=== PATIENT | female | born 1975 | race Caucasian/White ===

== ENCOUNTER 2022-10-19 12:31 | Emergency (ER) | payer OTHER, SELFPAY ==
--- NOTE | ~2022-10-19 | XR_ITS ---
XR forearm RT 2V DATE: 10/19/2022 13:13 INDICATION: Fall. Right forearm, hand and left knee pain TECHNIQUE: AP and lateral views COMPARISON: None FINDINGS: Normal alignment at the elbow and wrist joints. No fracture or dislocation of the radius or ulna. IMPRESSION: Negative Reviewed, dictated and finalized at location A. IMPRESSION: Negative
--- NOTE | ~2022-10-19 | XR_ITS ---
XR hand RT min 3V DATE: 10/19/2022 13:13 INDICATION: Fall. Right forearm and hand pain, left knee pain TECHNIQUE: 3 views COMPARISON: None FINDINGS: No fracture, dislocation, periosteal reaction or bone destruction. Joint spaces are relativ eulalia preserved. No erosive change or chondrocalcinosis. IMPRESSION: Negative Reviewed, dictated and finalized at location A. IMPRESSION: Negative
--- NOTE | ~2022-10-19 | XR_ITS ---
XR knee LT min 4V DATE: 10/19/2022 13:13 INDICATION: Fall. Left knee injury, pain TECHNIQUE: 4 views including crosstable lateral COMPARISON: None FINDINGS: Patellar enthesopathy at quadriceps and patellar tendon insertion sites. No fracture or dislocation or joint effusion. Joint spaces are relatively preserved. No periosteal re action or bone destruction. No radiopaque intra-articular loose body or chondrocalcinosis. IMPRESSION: No fracture or dislocation or joint effusion Reviewed, dictated and finalized at location A.
[2022-10-19 12:44] VITALS: BP 125/76; PULSE 89; RESP 16; TEMP 36.9; O2SAT 93
--- NOTE | 2022-10-19 13:04 | ED.GENADULT ---
HPI - General Adult General Chief complaint: Extremity Injury, Upper Stated complaint: Fall Injury/Right Arm Injury/Left Knee Source: patient Mode of arrival: ambulatory Limitations: no limitations History of Present Illness HPI narrative: Patient presents for evaluation of pain in the right hand, right forearm and left knee. She was walking down steps last night outdoors when she missed a step and fell. Her hand got caught in a folding chair and her left knee hit the ground. She did not hit her head. No LOC. she rates her pain in the left knee is 4/10 severity, right hand and forearm as 6/10 severity. No paresthesias. No loss of range of motion. Movement makes her pain worse. She is right-hand dominant. Related Data Home Medications Medication Instructions Recorded Confirmed atorvastatin 10 mg tablet 10 mg PO DAILY 03/07/21 10/19/22 biotin 1 mg capsule 1 mg PO DAILY 03/07/21 10/19/22 buspirone 7.5 mg tablet 7.5 mg PO DAILY 03/07/21 10/19/22 citalopram 40 mg tablet 40 mg PO DAILY 03/07/21 10/19/22 lisinopril 20 1 tablet PO DAILY 03/07/21 10/19/22 mg-hydrochlorothiazide 25 mg tablet modafinil 200 mg tablet 200 mg PO QAM 03/07/21 10/19/22 amlodipine 10 mg tablet 10 mg PO DAILY 10/19/22 10/19/22 atenolol 25 mg tablet 25 mg PO DAILY 10/19/22 10/19/22 dapagliflozin propanediol 5 mg 5 mg PO DAILY 10/19/22 10/19/22 tablet (Farxiga) omeprazole 40 mg capsule,delayed mg 10/19/22 release semaglutide 1 mg/dose (4 mg/3 mL) mg subcut 10/19/22 10/19/22 subcutaneous pen injector (Ozempic) Allergies Allergy/AdvReac Type Severity Reaction Status Date / Time No Known Allergies Allergy Unverified 10/19/22 12:53 Review of Systems Review of Systems: CONSTITUTIONAL: Denies fever, chills, or sweats. EYES: Denies visual changes, redness, or discharge. ENT: Denies rhinorrhea, congestion, sore throat, or otalgia. CARDIOVASCULAR: Denies chest pain, palpitations, or edema. RESPIRATORY: Denies cough or dyspnea. GASTROINTESTINAL: Denies abdominal pain, nausea, vomiting, or diarrhea. GENITOURINARY: Denies dysuria or hematuria. SKIN: Denies rash or itching. MUSCULOSKELETAL: Reports pain in the right hand, right forearm and left knee NEUROLOGIC: Denies headache, numbness, dizziness, or weakness. PSYCHIATRIC: Denies anxiety or depression. PMFSH Past Medical History Medical History (Updated 10/19/22 @ 13:44 by JESSIE Sosa, ) Anxiety Diabetes GERD (gastroesophageal reflux disease) Hypertension Surgical History Surgical History No pertinent past surgical history Family History Family History Father Diabetes mellitus Hypertension Mother Hypertension Diabetes mellitus Breast cancer Daughter Hypertension Depression Social History Social History (Updated 10/19/22 @ 13:07 by JESSIE Sosa, ) Smoking status: Never smoker Alcohol intake: never Substance use: never Gender identity (if verbalized by the patient): Female Sexual Orientation (if Verbalized by the Patient): Straight or Heterosexual Spiritual care concerns: No Exam Narrative: GENERAL: Well-appearing, well-nourished, and in no acute distress. HEAD: Normocephalic, atraumatic. EYES: PERRLA and EOMI. ENT: Nares clear, no rhinorrhea or epistaxis. Mucous membranes moist. Oropharynx without tonsillar hypertrophy exudate or other lesions. Bilateral TMs pearly lazcano nonbulging NECK: Supple. No adenopathy or masses. No carotid bruits or JVD CHEST: Clear to auscultation. No respiratory distress. No wheezes rales or rhonchi HEART: Regular rate and rhythm. No murmur heard. Normal peripheral pulses. ABDOMEN: Soft, nontender, nondistended, normal active bowel sounds. EXTREMITIES: Trace nonpitting edema to right hand. Tenderness in the 3rd and 4th metacarpals of the right hand. 4/5 hand drapery maker strength
== END 2022-10-19 13:45 | disposition home or self-care (01) ==
PROVIDERS: Emergency Provider Nurse Practitioner; PCP Family Medicine
DX: S63.501A Unspecified sprain of right wrist, initial encounter (principal); W10.9XXA Fall (on) (from) unspecified stairs and steps, initial encounter; S60.221A Contusion of right hand, initial encounter; S80.02XA Contusion of left knee, initial encounter; E11.9 Type 2 diabetes mellitus without complications; K21.9 Gastro-esophageal reflux disease without esophagitis; I10 Essential (primary) hypertension; F41.9 Anxiety disorder, unspecified
CPT/HCPCS: 73090; 73130; 73564; 99214; G0463

== ENCOUNTER 2023-09-17 22:22 | Inpatient (IN) | payer OTHER, SELFPAY ==
[2023-09-17 22:26] VITALS: BP 139/80; PULSE 108; RESP 15; TEMP 38.6; O2SAT 97
--- NOTE | 2023-09-17 22:32 | ECG_ITS ---
SEE SCANNED COPY FOR CONFIRMED REPORT MTDD
--- NOTE | 2023-09-17 22:44 | ED.GENADULT ---
HPI - General Adult General Chief complaint: Skin/Abscess/Foreign Body <Pedrito Murphy PA-C - Last Filed: 09/18/23 01:38> Stated complaint: Cellulitis <LAMONT Schwartz Last Filed: 09/18/23 01:38> Time Seen by Provider: 09/17/23 22:30 <LAMONT Schwartz Last Filed: 09/18/23 01:38> Source: patient <LAMONT Schwartz Last Filed: 09/18/23 01:38> Mode of arrival: ambulatory <LAMONT Schwartz Last Filed: 09/18/23 01:38> Limitations: no limitations <LAMONT Schwartz Last Filed: 09/18/23 01:38> History of Present Illness HPI narrative: This is a 48-year-old female who presents to the ED with chief complaint of left lower abdominal rash, pain and tenderness for the past couple of weeks. Reports this started as a small boil and extended into induration and redness around the abdomen. She reports that she has been on Bactrim and Augmentin through PCP with no relief. States the redness continues to spread and she continues to have pain. Reports that she started becoming febrile with temperature in the 101? F range. Denies nausea, vomiting, chest pain, shortness of breath, cough, urinary symptoms or back pain <LAMONT Schwartz Last Filed: 09/18/23 01:38> Related Data Home medications: Home Medications Medication Instructions Recorded Confirmed atorvastatin 10 mg tablet 10 mg PO DAILY 03/07/21 09/18/23 citalopram 40 mg tablet 40 mg PO DAILY 03/07/21 09/18/23 lisinopril 20 1 tablet PO DAILY 03/07/21 09/18/23 mg-hydrochlorothiazide 25 mg tablet modafinil 200 mg tablet 200 mg PO QAM 03/07/21 09/18/23 amlodipine 10 mg tablet 10 mg PO DAILY 10/19/22 09/18/23 atenolol 25 mg tablet 25 mg PO DAILY 10/19/22 09/18/23 dapagliflozin propanediol 5 mg 5 mg PO DAILY 10/19/22 09/18/23 tablet (Farxiga) omeprazole 40 mg capsule,delayed 40 mg PO DAILY 10/19/22 09/18/23 release semaglutide 1 mg/dose (4 mg/3 mL) See Rx Instructions .Route .COMPLEX 10/19/22 09/18/23 subcutaneous pen injector (Ozempic) colestipol 1 gram tablet 1 g PO HS 09/18/23 09/18/23 diphenoxylate-atropine 2.5 1 tablet PO QID PRN Diarrhea 09/18/23 09/18/23 mg-0.025 mg tablet silver sulfadiazine 1 % topical 1 applic topical DAILY 09/18/23 09/18/23 cream (SSD) <Pedrito Murphy PA-C - Last Filed: 09/18/23 01:38> Allergies/adverse reactions: Allergies Allergy/AdvReac Type Severity Reaction Status Date / Time No Known Allergies Allergy Verified 09/17/23 22:52 <Pedrito Murphy PA-C - Last Filed: 09/18/23 01:38> Review of Systems Review of Systems: All systems as dictated in HPI <Pedrito Murphy PA-C - Last Filed: 09/18/23 01:38> [facility] Past Medical History Medical History: Medical History (Updated 09/18/23 @ 00:41 by Pedrito Murphy PA-C) Anxiety Diabetes GERD (gastroesophageal reflux disease) Hypertension <Pedrito Murphy PA-C - Last Filed: 09/18/23 01:38> Surgical History Surgical History: Surgical History No pertinent past surgical history <Pedrito Murphy PA-C - Last Filed: 09/18/23 01:38> Family History Family History: Family History Father Diabetes mellitus Hypertension Mother Hypertension Diabetes mellitus Breast cancer Daughter Hypertension Depression <Pedrito Murphy PA-C - Last Filed: 09/18/23 01:38> Social History Social History: Social History (Updated 10/19/22 @ 13:07 by JESSIE Sosa, BC) Smoking status: Never smoker Alcohol intake: never Substance use: never Substance use type: does not use Do You Feel Safe in your Home?: Yes Lack of Transportation: No Lack of Food: Never True Current Housing: I Have Housing Concerned About Future Housing: No Difficulty Paying Gas/Electric Bills: No Difficulty Paying for Meds: No Currently Unemployed: No Education: High School
[2023-09-17 22:47] VITALS: BP 126/63; PULSE 112; RESP 30; O2SAT 93
[2023-09-17 22:48] VITALS: BP 126/63; PULSE 108; RESP 24; O2SAT 94
[2023-09-17] MEDS: SODIUM CHLORIDE 0.9% IV 1,000 ML 999 ML IV CONT ×2 (22:48)
[2023-09-17 22:57] LABS: Basophils Absolute Auto 0.1 K/mm3 (0.0-0.1); Basophils Percent Auto 0.3 % (0.2-1.2); Eosinophils Absolute Auto 0.1 K/mm3 (0-0.3); Eosinophils Percent Auto 0.6 % (0-4.4); Hemoglobin 13.1 g/dL (12.0-15.0); Immature Granulocyte Absolute 0.11 K/mm3 (0.00-0.031); Immature Granulocyte Percent A 0.6 % (0-0.5); Lymphocytes Absolute Auto 2.83 K/mm3 (0.9-3.2); Lymphocytes Percent Auto 14.8 % (18.3-44.2); Mean Corpuscular Hemoglobin 28.2 pg (26-34); Mean Corpuscular Volume 88.4 fl (80-100); Mean Platelet Volume 8.9 fl (7.4-10.4); Monocytes Absolute Auto 1.6 K/mm3 (0.1-0.6); Monocytes Percent Auto 8.6 % (2.6-8.5); Neutrophils Absolute Auto 14.4 K/mm3 (1.3-6.7); Neutrophils Percent Auto 75.1 % (45.5-73.1); Platelet Count Result 335 k/mm3 (150-375); Red Blood Count 4.64 M/mm3 (4.2-5.4); Red Cell Distribution Width 14.9 % (11.5-14.5); White Blood Count 19.1 K/mm3 (4.5-10.0)
[2023-09-17 23:01] VITALS: BP 127/69; PULSE 106; RESP 24; O2SAT 93
[2023-09-17 23:09] LABS: Lactic Acid Reflex 1.7 mmol/L (0.7-2.0)
[2023-09-17 23:11] LABS: INR 1.1; Prothrombin Time 14.3 Seconds (11.1-14.7)
[2023-09-17 23:12] LABS: Partial Thromboplastin Time 27.1 Seconds (22.3-36.8)
[2023-09-17] MEDS: LORazepam INJ (*CRX) 2 MG/ML VIAL 0.5 MG IM (23:12)
[2023-09-17 23:13] LABS: Alanine Aminotransferase 32 U/L (6-35); Albumin Level 4.2 g/dL (3.5-5.1); Alkaline Phosphatase 101 U/L (38-126); Anion Gap 6 mmol/L (4-12); Aspartate Amino Transferase 29 U/L (14-36); Bilirubin,Total 1.3 mg/dL (0.2-1.3); Blood Urea Nitrogen 9 mg/dL (7-17); Carbon Dioxide 31 mmol/L (22-30); Chloride 99 mmol/L (98-107); Estimated CRCL calculation 103 ml/min; Estimated Glomerular Filt Rate > 60; Glucose 188 mg/dL (65-110); Lipase 36 U/L (23-300); Potassium 3.7 mmol/L (3.4-5.0); Sodium 136 mmol/L (137-145)
[2023-09-17] MEDS: KETOROLAC 15 MG/ML VIAL (*BKC) IV PUSH (23:13)
[2023-09-17] MEDS: CEFEPIME 2 GM/NS 50 ML 2 GM/50 ML BAG IVPB (23:13)
[2023-09-17 23:14] LABS: Appearance Urine Clear (Clear); Bacteria Urine None Seen /hpf; Bilirubin Urine Negative (Negative); Blood Urine Negative (Negative); Color Urine Yellow (Yellow); Glucose Urine UA 2+ mg/dL (Negative); Ketones Urine Trace mg/dL (Negative); Leukocyte Esterase Ur Negative LEU/UL (Negative); Nitrate Urine Negative (Negative); Non Pathogenic Casts 0-2; Protein Urine Trace mg/dL (Negative); RBC Urine 0-2 /hpf (0-2); Specific Grav Ur 1.023 (1.001-1.035); Squamous Epithelial Cell Urine Occasional /hpf (Few); WBC Urine 0-5 /hpf (0-3)
[2023-09-17 23:16] VITALS: BP 137/71; PULSE 108; RESP 31; O2SAT 93
[2023-09-17 23:28] LABS: Add Urine Microscopic? YES
[2023-09-17 23:31] VITALS: BP 145/67; PULSE 107; RESP 28; O2SAT 90
[2023-09-17 23:40] LABS: CRP 25.9 mg/dL (<1.0)
[2023-09-17] MEDS: VANCOMYCIN 1,250 MG/NS 250 ML 1,250 MG/250 ML BAG 166.67 MG IVPB (23:40)
[2023-09-18] VITALS (25 sets, daily range): BP systolic 131–148; BP diastolic 63–78; PULSE 79–108; RESP 16–31; TEMP 36.7–38.3; O2SAT 92–98
[2023-09-18] MEDS: SODIUM CHLORIDE 0.9% IV 1,000 ML 125 ML IV CONT ×3 (01:03→23:22)
[2023-09-18] MEDS: MORPHINE SULFATE (*CRX) 2 MG/ML INJ IV PUSH (01:03)
[2023-09-18] MEDS: VANCOMYCIN 1,250 MG/NS 250 ML 1,250 MG/250 ML BAG 166.67 MG IVPB (01:17)
--- NOTE | 2023-09-18 01:29 | ADMGEN ---
This patient, Tory Lopez, was admitted to 2 Medical Room 259-. Patient/family oriented to hospital policies and general routines including ID bracelet, bed and alarms, visiting hours, pain management, procedures, bathroom and other care routines, personal items, smoking policy, room service/diet, and visiting hours. Information on how to activate the Rapid Response Team has been discussed. Patient/Family are encouraged to report perceived risks to care and to ask questions if they do not understand what they are told or what they should do.
--- NOTE | 2023-09-18 04:45 | PM.IMHP ---
H&P: HPI History of Present Illness Date/Time: 09/18/23 04:45 Chief Complaint: fever Narrative: patient is a 48-year-old female with history of hypertension, sleep apnea, obesity, diabetes, hypertension came to the hospital complaining of left lower abdomen redness and tenderness getting worse in the last few days. Patient was seen by the PCP as an outpatient started on Augmentin and Bactrim with no relief. Patient continued to notice that the rash is getting larger and more tender and more swollen at that site. Patient had a temp of 101? max no nausea no vomiting no abdominal pain and no local injuries patient states her blood sugars have been well controlled Review of Systems Review of Systems: No double vision no blurry vision. No difficulty hearing or sinus complaints. No chest pain shortness of breath fever palpitation dizziness ankle swelling. No coughing wheezing chills. No nausea constipation diarrhea abdominal pain reflux. No urgency frequency of urination. No hematuria. has skin rash eczema. No anxiety depression difficulty sleeping. No bleeding gums enlarged glands. No muscle ache back pain joint stiffness. No loss of strength numbness headache tremor or loss of memory. All systems reviewed & are unremarkable except as noted in HPI and below PMFSH Past Medical History Medical History (Updated 09/18/23 @ 00:41 by Pedrito Murphy PA-C) Anxiety Diabetes GERD (gastroesophageal reflux disease) Hypertension Surgical History Surgical History No pertinent past surgical history Family History Family History Father Diabetes mellitus Hypertension Mother Hypertension Diabetes mellitus Breast cancer Daughter Hypertension Depression Social History Social History (Updated 10/19/22 @ 13:07 by JESSIE Sosa, ) Smoking status: Never smoker Alcohol intake: never Substance use: never Substance use type: does not use Do You Feel Safe in your Home?: Yes Lack of Transportation: No Lack of Food: Never True Current Housing: I Have Housing Concerned About Future Housing: No Difficulty Paying Gas/Electric Bills: No Difficulty Paying for Meds: No Currently Unemployed: No Education: High School Diploma/GED Difficulty w/ Childcare or Family Care: No Gender identity (if verbalized by the patient): Female Sexual Orientation (if Verbalized by the Patient): Straight or Heterosexual Spiritual care concerns: No Meds Home Medications and Allergies Home Medications Medication Instructions Recorded Confirmed Type atorvastatin 10 mg tablet 10 mg PO DAILY 03/07/21 09/18/23 History calcium polycarbophil 625 mg 1,250 mg PO BID #120 tabs 03/07/21 09/18/23 Rx tablet (FiberCon) citalopram 40 mg tablet 40 mg PO DAILY 03/07/21 09/18/23 History lisinopril 20 1 tablet PO DAILY 03/07/21 09/18/23 History mg-hydrochlorothiazide 25 mg tablet modafinil 200 mg tablet 200 mg PO QAM 03/07/21 09/18/23 History amlodipine 10 mg tablet 10 mg PO DAILY 10/19/22 09/18/23 History atenolol 25 mg tablet 25 mg PO DAILY 10/19/22 09/18/23 History dapagliflozin propanediol 5 mg 5 mg PO DAILY 10/19/22 09/18/23 History tablet (Farxiga) omeprazole 40 mg capsule,delayed 40 mg PO DAILY 10/19/22 09/18/23 History release semaglutide 1 mg/dose (4 mg/3 mL) See Rx Instructions .Route .COMPLEX 10/19/22 09/18/23 History subcutaneous pen injector (Ozempic) colestipol 1 gram tablet 1 g PO HS 09/18/23 09/18/23 History diphenoxylate-atropine 2.5 1 tablet PO QID PRN Diarrhea 09/18/23 09/18/23 History mg-0.025 mg tablet silver sulfadiazine 1 % topical 1 applic topical DAILY 09/18/23 09/18/23 History cream (SSD) Allergies Allergy/AdvReac Type Severity Reaction Status Date / Time No Known Allergies Allergy Verified 09/17/23 22:52 Vital
[2023-09-18 05:40] LABS: Estimated CRCL calculation 118 ml/min; Estimated Glomerular Filt Rate > 60
[2023-09-18] MEDS: ACETAMINOPHEN 325 MG TABLET 650 MG PO (06:22)
[2023-09-18 06:31] LABS: Hemoglobin 11.5 g/dL (12.0-15.0); Mean Corpuscular HGB Conc 31.1 g/dl (32-36); Mean Corpuscular Hemoglobin 28.3 pg (26-34); Mean Corpuscular Volume 90.9 fl (80-100); Mean Platelet Volume 9.4 fl (7.4-10.4); Platelet Count Result 315 k/mm3 (150-375); Red Blood Count 4.07 M/mm3 (4.2-5.4); Red Cell Distribution Width 15.2 % (11.5-14.5)
[2023-09-18 06:43] LABS: Alanine Aminotransferase 26 U/L (6-35); Albumin Level 3.4 g/dL (3.5-5.1); Alkaline Phosphatase 114 U/L (38-126); Anion Gap 8 mmol/L (4-12); Aspartate Amino Transferase 27 U/L (14-36); Bilirubin,Total 1.1 mg/dL (0.2-1.3); Blood Urea Nitrogen 9 mg/dL (7-17); Carbon Dioxide 25 mmol/L (22-30); Chloride 105 mmol/L (98-107); Estimated CRCL calculation 118 ml/min; Estimated Glomerular Filt Rate > 60; Glucose 157 mg/dL (65-110); Potassium 3.6 mmol/L (3.4-5.0); Sodium 138 mmol/L (137-145)
[2023-09-18 07:30] LABS: Hemoglobin A1C 6.7 % (<5.7)
--- NOTE | 2023-09-18 07:53 | PM.IMPN ---
Progress Note: A&P Assessment and Plan (1) Cellulitis: Code(s): L03.90 - Cellulitis, unspecified Status: Acute (2) Sepsis: Code(s): A41.9 - Sepsis, unspecified organism Status: Acute (3) GERD (gastroesophageal reflux disease): Code(s): K21.9 - Gastro-esophageal reflux disease without esophagitis Status: Acute (4) Diabetes: Code(s): E11.9 - Type 2 diabetes mellitus without complications Status: Acute Plan Sepsis/abdominal wall cellulitis IV fluid resuscitation Monitor lactic acid levels Repeat CBC CMP Two sets of Blood cultures urine cultures- pending C-reactive protein, 25.9 WBCs 19.1-18 today PTT and PT INR normal Monitor albumin' Monitoring of mental status. Steroids suggested if septic shock not improved with fluid resuscitation and vasopressors. IV antibiotics vancomycin and cefepime DM HBA1c ( goal <7.0%) , Renal functions, Liver panel every 3 months Monitor vitamin B12 levels Optimize MARILOU-inhibitor and statin and semaglutide patient currently on Farxiga Routine glucose monitoring. Watch for Hypoglycemia. BMI goal < 25 Exercise, Diet ( low salt- low carb) Weight loss adding sliding scale insulin for strict blood sugar control OBESITY Monitor physical inactivity. Stress monitoring and eating disorder. Referral to weight loss clinic. Weight bias and stigma screening. Diet and exercise counseling done History of hypertension continue lisinopril hydrochlorothiazide. and amlodipine History of hyperlipidemia continue atorvastatin history of anxiety continue citalopram (obesogenic) Time Spent With Patient Time with patient: 15 - 25 minutes Subjective Date/time seen: 09/18/23 07:53 Interval history: 48-year-old female PMH hypertension, sleep apnea, obesity, diabetes, hypertension came to the hospital complaining of left lower abdomen redness and tenderness getting worse in the last few days.? Patient was seen by the PCP as an outpatient started on Augmentin and Bactrim with no relief.? Patient continued to notice that the rash is getting larger and more tender and more swollen at that site.? Patient had a temp of 101? max no nausea no vomiting no abdominal pain and no local injuries patient states her blood sugars have been well controlled. 09/17- seen and examined at the bedside. Erythema marked on abd- improving. Pt is comfortable, repors no complains. Denies abd pain, no n/v/d Review of Systems Review of Systems: No double vision no blurry vision. No difficulty hearing or sinus complaints. No chest pain shortness of breath fever palpitation dizziness ankle swelling. No coughing wheezing chills. No nausea constipation diarrhea abdominal pain reflux. No urgency frequency of urination. No hematuria. has skin rash eczema. No anxiety depression difficulty sleeping. No bleeding gums enlarged glands. No muscle ache back pain joint stiffness. No loss of strength numbness headache tremor or loss of memory. All systems reviewed & are unremarkable except as noted in HPI and below Exam Narrative: GENERAL: Well appearing, no acute distress. HEAD: Normocephalic, atraumatic. NECK: Supple. No adenopathy, no masses. RESPIRATORY: respirations nonlabored. , no rales, wheezing. CARDIOVASCULAR: Regular rate and rhythm without murmurs, . Peripheral pulses 2+ and equal bilaterally. ABDOMINAL: Soft, nontender, nondistended, no hepatosplenomegaly. Normoactive BS. erythema and abscess left lower quadrant abdominal wall MUSCULOSKELETAL: no Epigastric and no hypochondrial tenderness SKIN: Warm, dry, erythema is improving to abd (abd is marked) NEURO: A&O X3. Moves all extremities Const: General: comfortable Objective Data Vital Signs Vital Signs: Vital Signs - 24 hr 09/17/23 22:26 09/17/23 22:48 09/17/23 22:47 Temperature 101.4 F H Pulse Rate 108 H 108 H 112 H Respiratory Rate 15 24 H 30 H Blood Pressure 139/80 126/6
[2023-09-18] MEDS: CITALOPRAM HYDROBROMIDE 20 MG TABLET 40 MG PO (08:57)
[2023-09-18] MEDS: hydroCHLOROthiazide 25 MG TABLET PO (08:57)
[2023-09-18] MEDS: PANTOPRAZOLE 40 MG TABLET PO ×2 (08:57→16:10)
[2023-09-18] MEDS: modafiniL (*CRX) 200 MG TABLET PO (08:57)
[2023-09-18] MEDS: lisinopriL 20 MG TABLET PO (08:57)
[2023-09-18] MEDS: atenoloL 25 MG TABLET PO (08:57)
[2023-09-18] MEDS: amLODIPine BESYLATE 5 MG TABLET 10 MG PO (08:58)
[2023-09-18] MEDS: ATORVASTATIN 10 MG TABLET PO (08:58)
[2023-09-18] MEDS: EMPAGLIFLOZIN 10 MG TABLET PO (08:58)
[2023-09-18] MEDS: ENOXAPARIN 40 MG/0.4 ML SYRINGE SUB-Q (08:58)
[2023-09-18] MEDS: HYDROcodone/acetaminophen (*CRX) 5-325 MG TABLET 1 TAB PO ×2 (09:13→16:10)
[2023-09-18 09:28] LABS: Glucose Point of Care 146 mg/dl (65-105)
[2023-09-18] MEDS: CEFEPIME 2 GM/NS 50 ML 2 GM/50 ML BAG IVPB ×2 (11:34→23:22)
[2023-09-18 11:50] LABS: Glucose Point of Care 131 mg/dl (65-105)
[2023-09-18] MEDS: VANCOMYCIN 1,500 MG/NS 500 ML 1,500 MG/500 ML BAG 250 MG IVPB ×2 (12:37→23:22)
[2023-09-18] MEDS: ONDANSETRON INJ 4 MG/2 ML VIAL IV PUSH (13:42)
[2023-09-18 16:52] LABS: Glucose Point of Care 134 mg/dl (65-105)
[2023-09-18 20:11] LABS: Glucose Point of Care 161 mg/dl (65-105)
[2023-09-18] MEDS: COLESTIPOL HCL 1 GM TABLET PO (20:14)
[2023-09-19] VITALS (10 sets, daily range): BP systolic 102–124; BP diastolic 51–60; PULSE 76–99; RESP 16–20; TEMP 36.2–36.9; O2SAT 91–92
[2023-09-19] MEDS: HYDROcodone/acetaminophen (*CRX) 5-325 MG TABLET 1 TAB PO (01:46)
[2023-09-19 01:56] LABS: Glucose Point of Care 146 mg/dl (65-105)
[2023-09-19 04:59] LABS: Hematocrit 35.5 % (37.0-47.0); Hemoglobin 11.1 g/dL (12.0-15.0); Mean Corpuscular HGB Conc 31.3 g/dl (32-36); Mean Corpuscular Hemoglobin 28.2 pg (26-34); Mean Corpuscular Volume 90.1 fl (80-100); Mean Platelet Volume 9.1 fl (7.4-10.4); Platelet Count Result 310 k/mm3 (150-375); Red Blood Count 3.94 M/mm3 (4.2-5.4); Red Cell Distribution Width 15.1 % (11.5-14.5); White Blood Count 16.7 K/mm3 (4.5-10.0)
[2023-09-19 05:09] LABS: Alanine Aminotransferase 33 U/L (6-35); Albumin Level 3.5 g/dL (3.5-5.1); Alkaline Phosphatase 113 U/L (38-126); Anion Gap 7 mmol/L (4-12); Aspartate Amino Transferase 26 U/L (14-36); Bilirubin,Total 1.2 mg/dL (0.2-1.3); Blood Urea Nitrogen 8 mg/dL (7-17); Calcium 8.6 mg/dL (8.4-10.2); Carbon Dioxide 26 mmol/L (22-30); Chloride 105 mmol/L (98-107); Estimated CRCL calculation 118 ml/min; Estimated Glomerular Filt Rate > 60; Glucose 114 mg/dL (65-110); Potassium 3.5 mmol/L (3.4-5.0); Sodium 138 mmol/L (137-145)
[2023-09-19 05:11] LABS: Lactic Acid Reflex 0.9 mmol/L (0.7-2.0)
[2023-09-19 06:40] LABS: Glucose Point of Care 130 mg/dl (65-105)
--- NOTE | 2023-09-19 08:04 | PM.IMPN ---
Progress Note: A&P Assessment and Plan (1) Cellulitis: Code(s): L03.90 - Cellulitis, unspecified Status: Acute (2) Sepsis: Code(s): A41.9 - Sepsis, unspecified organism Status: Acute (3) GERD (gastroesophageal reflux disease): Code(s): K21.9 - Gastro-esophageal reflux disease without esophagitis Status: Acute (4) Diabetes: Code(s): E11.9 - Type 2 diabetes mellitus without complications Status: Acute Plan Sepsis/abdominal wall cellulitis IV fluid resuscitation Monitor lactic acid levels Repeat CBC CMP Two sets of Blood cultures urine cultures- pending C-reactive protein, 25.9 WBCs 19.1-18 today PTT and PT INR normal Monitor albumin' Monitoring of mental status. Steroids suggested if septic shock not improved with fluid resuscitation and vasopressors. IV antibiotics vancomycin and cefepime will switch to oral Levaquin and doxy tomorrow with 10 days duration and anticipate discharge home. 09/18 WBC 16.7 today DM HBA1c ( goal <7.0%) , Renal functions, Liver panel every 3 months Monitor vitamin B12 levels Optimize MARILOU-inhibitor and statin and semaglutide patient currently on [facility] Routine glucose monitoring. Watch for Hypoglycemia. BMI goal < 25 Exercise, Diet ( low salt- low carb) Weight loss adding sliding scale insulin for strict blood sugar control OBESITY Monitor physical inactivity. Stress monitoring and eating disorder. Referral to weight loss clinic. Weight bias and stigma screening. Diet and exercise counseling done History of hypertension continue lisinopril hydrochlorothiazide. and amlodipine History of hyperlipidemia continue atorvastatin history of anxiety continue citalopram (obesogenic) Time Spent With Patient Time with patient: less than 15 minutes Subjective Date/time seen: 09/19/23 08:04 Interval history: 48-year-old female [facility] hypertension, sleep apnea, obesity, diabetes, hypertension came to the hospital complaining of left lower abdomen redness and tenderness getting worse in the last few days.? Patient was seen by the PCP as an outpatient started on Augmentin and Bactrim with no relief.? Patient continued to notice that the rash is getting larger and more tender and more swollen at that site.? Patient had a temp of 101? max no nausea no vomiting no abdominal pain and no local injuries patient states her blood sugars have been well controlled. 09/17- seen and examined at the bedside. Erythema marked on abd- improving. Pt is comfortable, repors no complains. Denies abd pain, no n/v/d. 09/18- seen and examined today. doing well. Wanst to go home, erythema better. Discussed with pharmacy- will get another IV antibiotics overnight and anticipate startign PO levaquin and doxy tomorrow with 10 days course. Review of Systems Review of Systems: No double vision no blurry vision. No difficulty hearing or sinus complaints. No chest pain shortness of breath fever palpitation dizziness ankle swelling. No coughing wheezing chills. No nausea constipation diarrhea abdominal pain reflux. No urgency frequency of urination. No hematuria. has skin rash eczema. No anxiety depression difficulty sleeping. No bleeding gums enlarged glands. No muscle ache back pain joint stiffness. No loss of strength numbness headache tremor or loss of memory. All systems reviewed & are unremarkable except as noted in HPI and below Exam Narrative: GENERAL: Well appearing, no acute distress. HEAD: Normocephalic, atraumatic. NECK: Supple. No adenopathy, no masses. RESPIRATORY: respirations nonlabored. , no rales, wheezing. CARDIOVASCULAR: Regular rate and rhythm without murmurs, . Peripheral pulses 2+ and equal bilaterally. ABDOMINAL: Soft, nontender, nondistended, no hepatosplenomegaly. Normoactive BS. erythema and abscess left lower quadrant abdominal wall MUSCULOSKELETAL: no Epigastric and no hypochondrial tenderness SKIN: Warm, dry, er
[2023-09-19 08:12] LABS: Glucose Point of Care 115 mg/dl (65-105)
[2023-09-19] MEDS: amLODIPine BESYLATE 5 MG TABLET 10 MG PO (08:24)
[2023-09-19] MEDS: EMPAGLIFLOZIN 10 MG TABLET PO (08:24)
[2023-09-19] MEDS: ATORVASTATIN 10 MG TABLET PO (08:24)
[2023-09-19] MEDS: hydroCHLOROthiazide 25 MG TABLET PO (08:24)
[2023-09-19] MEDS: modafiniL (*CRX) 200 MG TABLET PO (08:24)
[2023-09-19] MEDS: CITALOPRAM HYDROBROMIDE 20 MG TABLET 40 MG PO (08:24)
[2023-09-19] MEDS: ENOXAPARIN 40 MG/0.4 ML SYRINGE SUB-Q (08:25)
[2023-09-19] MEDS: atenoloL 25 MG TABLET PO (08:25)
[2023-09-19] MEDS: lisinopriL 20 MG TABLET PO (08:25)
[2023-09-19] MEDS: PANTOPRAZOLE 40 MG TABLET PO ×2 (08:25→16:13)
[2023-09-19] MEDS: ONDANSETRON INJ 4 MG/2 ML VIAL IV PUSH (10:44)
[2023-09-19 11:53] LABS: Vancomycin Trough 8.3 ug/mL (10.0-20.0)
[2023-09-19] MEDS: DIPHENOXYLATE/ATROPINE (*CRX) 2.5 MG TABLET 1 TABLET PO (12:05)
[2023-09-19] MEDS: CEFEPIME 2 GM/NS 50 ML 2 GM/50 ML BAG IVPB (12:05)
[2023-09-19 12:16] LABS: Glucose Point of Care 118 mg/dl (65-105)
[2023-09-19] MEDS: VANCOMYCIN 2,000 MG/NS 500 ML 2,000 MG/500 ML BAG 250 MG IVPB ×2 (12:45→23:22)
[2023-09-19] MEDS: SODIUM CHLORIDE 0.9% IV 1,000 ML 125 ML IV CONT ×2 (12:46→23:25)
[2023-09-19] MEDS: ACETAMINOPHEN 325 MG TABLET 650 MG PO (16:13)
[2023-09-19 17:07] LABS: Glucose Point of Care 129 mg/dl (65-105)
[2023-09-19] MEDS: COLESTIPOL HCL 1 GM TABLET PO (22:08)
[2023-09-19 22:23] LABS: Glucose Point of Care 122 mg/dl (65-105)
[2023-09-20] VITALS (8 sets, daily range): BP systolic 128–131; BP diastolic 54–58; PULSE 77–90; RESP 18–22; TEMP 36.7–37.3; O2SAT 90–98
--- NOTE | 2023-09-20 08:00 | PM.IMPN ---
Progress Note: A&P Assessment and Plan (1) Cellulitis: Code(s): L03.90 - Cellulitis, unspecified Status: Acute (2) Sepsis: Code(s): A41.9 - Sepsis, unspecified organism Status: Acute (3) GERD (gastroesophageal reflux disease): Code(s): K21.9 - Gastro-esophageal reflux disease without esophagitis Status: Acute (4) Diabetes: Code(s): E11.9 - Type 2 diabetes mellitus without complications Status: Acute Plan Sepsis/abdominal wall cellulitis IV fluid resuscitation Monitor lactic acid levels Repeat CBC CMP Two sets of Blood cultures urine cultures- pending C-reactive protein, 25.9 WBCs 19.1-18 today PTT and PT INR normal Monitor albumin' Monitoring of mental status. Steroids suggested if septic shock not improved with fluid resuscitation and vasopressors. IV antibiotics vancomycin and cefepime will switch to oral Levaquin and doxy tomorrow with 10 days duration and anticipate discharge home. 09/18 WBC 16.7 today 09/19- draining today- will collect wound culture and see if that could be I&D surgery consulted DM HBA1c ( goal <7.0%) , Renal functions, Liver panel every 3 months Monitor vitamin B12 levels Optimize MARILOU-inhibitor and statin and semaglutide patient currently on [facility] Routine glucose monitoring. Watch for Hypoglycemia. BMI goal < 25 Exercise, Diet ( low salt- low carb) Weight loss adding sliding scale insulin for strict blood sugar control OBESITY Monitor physical inactivity. Stress monitoring and eating disorder. Referral to weight loss clinic. Weight bias and stigma screening. Diet and exercise counseling done History of hypertension continue lisinopril hydrochlorothiazide. and amlodipine History of hyperlipidemia continue atorvastatin history of anxiety continue citalopram (obesogenic) Subjective Date/time seen: 09/20/23 08:00 Interval history: 48-year-old female PMH hypertension, sleep apnea, obesity, diabetes, hypertension came to the hospital complaining of left lower abdomen redness and tenderness getting worse in the last few days.? Patient was seen by the PCP as an outpatient started on Augmentin and Bactrim with no relief.? Patient continued to notice that the rash is getting larger and more tender and more swollen at that site.? Patient had a temp of 101? max no nausea no vomiting no abdominal pain and no local injuries patient states her blood sugars have been well controlled. 09/17- seen and examined at the bedside. Erythema marked on abd- improving. Pt is comfortable, repors no complains. Denies abd pain, no n/v/d. 09/18- seen and examined today. doing well. Wants to go home, erythema better. Discussed with pharmacy- will get another IV antibiotics overnight and anticipate starting PO levaquin and doxy tomorrow with 10 days course. 09/19- drainage noted- will collect wound culture and consult surgery to see if I&D can be done. Erythema is better today. pt is not c/o any pain Review of Systems Review of Systems: No double vision no blurry vision. No difficulty hearing or sinus complaints. No chest pain shortness of breath fever palpitation dizziness ankle swelling. No coughing wheezing chills. No nausea constipation diarrhea abdominal pain reflux. No urgency frequency of urination. No hematuria. has skin rash eczema. No anxiety depression difficulty sleeping. No bleeding gums enlarged glands. No muscle ache back pain joint stiffness. No loss of strength numbness headache tremor or loss of memory. All systems reviewed & are unremarkable except as noted in HPI and below Exam Narrative: GENERAL: Well appearing, no acute distress. HEAD: Normocephalic, atraumatic. NECK: Supple. No adenopathy, no masses. RESPIRATORY: respirations nonlabored. , no rales, wheezing. CARDIOVASCULAR: Regular rate and rhythm without murmurs, . Peripheral pulses 2+ and equal bilaterally. ABDOMINAL: Soft, nontender, nondistended, n
[2023-09-20 08:26] LABS: Glucose Point of Care 118 mg/dl (65-105)
[2023-09-20] MEDS: ATORVASTATIN 10 MG TABLET PO (09:30)
[2023-09-20] MEDS: modafiniL (*CRX) 200 MG TABLET PO (09:30)
[2023-09-20] MEDS: amLODIPine BESYLATE 5 MG TABLET 10 MG PO (09:30)
[2023-09-20] MEDS: lisinopriL 20 MG TABLET PO (09:30)
[2023-09-20] MEDS: EMPAGLIFLOZIN 10 MG TABLET PO (09:30)
[2023-09-20] MEDS: atenoloL 25 MG TABLET PO (09:31)
[2023-09-20] MEDS: PANTOPRAZOLE 40 MG TABLET PO (09:31)
[2023-09-20] MEDS: CITALOPRAM HYDROBROMIDE 20 MG TABLET 40 MG PO (09:31)
[2023-09-20] MEDS: hydroCHLOROthiazide 25 MG TABLET PO (09:31)
[2023-09-20] MEDS: ENOXAPARIN 40 MG/0.4 ML SYRINGE SUB-Q (09:31)
[2023-09-20] MEDS: DOXYCYCLINE HYCLATE 100 MG TABLET PO (09:34)
[2023-09-20] MEDS: levoFLOXacin 750 MG TABLET PO (09:35)
[2023-09-20] MEDS: SODIUM CHLORIDE 0.9% IV 1,000 ML 125 ML IV CONT (09:36)
[2023-09-20 09:46] LABS: Hematocrit 35.5 % (37.0-47.0); Hemoglobin 11.2 g/dL (12.0-15.0); Mean Corpuscular HGB Conc 31.5 g/dl (32-36); Mean Corpuscular Hemoglobin 28.1 pg (26-34); Mean Platelet Volume 8.6 fl (7.4-10.4); Platelet Count Result 343 k/mm3 (150-375); Red Blood Count 3.99 M/mm3 (4.2-5.4); Red Cell Distribution Width 14.9 % (11.5-14.5); White Blood Count 13.6 K/mm3 (4.5-10.0)
[2023-09-20 09:56] LABS: Alanine Aminotransferase 34 U/L (6-35); Albumin Level 3.5 g/dL (3.5-5.1); Alkaline Phosphatase 87 U/L (38-126); Anion Gap 5 mmol/L (4-12); Aspartate Amino Transferase 23 U/L (14-36); Bilirubin,Total 0.9 mg/dL (0.2-1.3); Blood Urea Nitrogen 7 mg/dL (7-17); Calcium 8.6 mg/dL (8.4-10.2); Carbon Dioxide 26 mmol/L (22-30); Chloride 107 mmol/L (98-107); Estimated CRCL calculation 139 ml/min; Estimated Glomerular Filt Rate > 60; Glucose 150 mg/dL (65-110); Potassium 3.1 mmol/L (3.4-5.0); Sodium 138 mmol/L (137-145)
--- NOTE | 2023-09-20 10:50 | PM.CNGS ---
Assessment and Plan Assessment and plan (1) Abdominal wall abscess: Code(s): L02.211 - Cutaneous abscess of abdominal wall Status: Acute Assessment and Plan: Area has opened and started draining, will need to enlarge incision to allow better drainage, local wound care and antibiotics (2) Sepsis: Code(s): A41.9 - Sepsis, unspecified organism Status: Acute Assessment and Plan: largely resolved, continue antibiotics and wound care (3) Diabetes: Code(s): E11.9 - Type 2 diabetes mellitus without complications Status: Acute Assessment and Plan: Tight blood sugar control given infection History of Present Illness Consult details Consult date: 09/20/23 Reason for consult: wound care Requesting physician: Juan J Reich MD Narrative: The patient is a 48-year-old female with multiple medical issues that presented to the emergency department with a left lower quadrant abscess, cellulitis and sepsis. The patient reports she had severe inflammation, pain, and redness in the left lower quadrant for few days prior to emergency room visit. She was started on p.o. antibiotics by her PCP but reports no improvement. The patient reports systemic symptoms of fevers, chills, weakness, anorexia. The patient reports since admission with IV antibiotics this area has dramatically improved and actually opened and started draining purulent fluid yesterday. She reports the pain and pressure are significantly improved this time. Review of Systems Review of Systems: All systems reviewed & are unremarkable except as noted in HPI and below PMFSH Past Medical History Medical History Anxiety Diabetes GERD (gastroesophageal reflux disease) Hypertension Surgical History Surgical History No pertinent past surgical history Family History Family History Father Diabetes mellitus Hypertension Mother Hypertension Diabetes mellitus Breast cancer Daughter Hypertension Depression Social History Social History Smoking status: Never smoker Alcohol intake: never Substance use: never Substance use type: does not use Do You Feel Safe in your Home?: Yes Lack of Transportation: No Lack of Food: Never True Current Housing: I Have Housing Concerned About Future Housing: No Difficulty Paying Gas/Electric Bills: No Difficulty Paying for Meds: No Currently Unemployed: No Education: High School Diploma/GED Difficulty w/ Childcare or Family Care: No Gender identity (if verbalized by the patient): Female Sexual Orientation (if Verbalized by the Patient): Straight or Heterosexual Spiritual care concerns: No Meds Home Medications and Allergies Home Medications Medication Instructions Recorded Confirmed Type atorvastatin 10 mg tablet 10 mg PO DAILY 03/07/21 09/18/23 History calcium polycarbophil 625 mg 1,250 mg PO BID #120 tabs 03/07/21 09/18/23 Rx tablet (FiberCon) citalopram 40 mg tablet 40 mg PO DAILY 03/07/21 09/18/23 History lisinopril 20 1 tablet PO DAILY 03/07/21 09/18/23 History mg-hydrochlorothiazide 25 mg tablet modafinil 200 mg tablet 200 mg PO QAM 03/07/21 09/18/23 History amlodipine 10 mg tablet 10 mg PO DAILY 10/19/22 09/18/23 History atenolol 25 mg tablet 25 mg PO DAILY 10/19/22 09/18/23 History dapagliflozin propanediol 5 mg 5 mg PO DAILY 10/19/22 09/18/23 History tablet (Farxiga) omeprazole 40 mg capsule,delayed 40 mg PO DAILY 10/19/22 09/18/23 History release semaglutide 1 mg/dose (4 mg/3 mL) See Rx Instructions .Route .COMPLEX 10/19/22 09/18/23 History subcutaneous pen injector (Ozempic) colestipol 1 gram tablet 1 g PO HS 09/18/23 09/18/23 History diphenoxylate-atropine 2.5 1 tablet PO QID PRN Diarrhea 09/18/23
--- NOTE | 2023-09-20 12:31 | W.PM.PROC2 ---
Procedure Note - Detailed Date of Procedure 09/20/23 Pre-op Diagnosis Left lower quadrant abdominal wall abscess measuring approximately 25 x 10 cm Post-op Diagnosis Same Procedure Performed complex incision and drainage left lower quadrant abdominal wall abscess measuring 25 x 10 cm Surgeon Soraya Orozco MD Anesthesia Local Indications 48-year-old female presenting to the hospital with a large left lower quadrant abdominal wall abscess. Attempted I and D in the emergency department did not yield any purulent drainage. The area has since opened up and is now draining some purulent fluid Findings large abscess cavity in the left lower quadrant measuring approximately 25 x 10 cm Description of Procedure The patient was placed in the supine position. Local anesthetic was placed in and around this abscess cavity. The area was then prepped and draped in the normal sterile fashion. A time-out was then done to verify the patient's identity, as well as the procedure being performed. I began by opening up the punctate opening that was draining purulent fluid. This was done with a 15 blade scalpel. Incision was enlarged to approximately 3 cm. Once into the abscess cavity a copious amount of purulent drainage was noted. I used a hemostat to bluntly dissect around this large cavity and break up further loculations. Further purulent drainage was noted. The abscess cavity was to measure approximately 25 x 10 cm. The cavity was contained within the subcutaneous tissue and did not extend to the underlying muscle. Once completely opened and drained, I packed the cavity with half-inch iodoform. This allowed the cavity to continue to be open and draining. Sterile dressing was then placed on the wound. The patient tolerated the procedure well. Estimated Blood Loss 10 Drains No Packing Yes Pathology None sent Complications No immediate complications Condition Stable Disposition Floor [facility] Billing Surgery - Charge Forward: Surgery Billing
--- NOTE | 2023-09-20 13:20 | PM.DS ---
DS: Admitting Diagnosis Discharge Date 09/19 Admitting Diagnosis abd wall abscess DS: Discharge Diagnosis Discharge Diagnosis (1) Cellulitis: Code(s): L03.90 - Cellulitis, unspecified Status: Acute (2) Sepsis: Code(s): A41.9 - Sepsis, unspecified organism Status: Acute (3) GERD (gastroesophageal reflux disease): Code(s): K21.9 - Gastro-esophageal reflux disease without esophagitis Status: Acute (4) Diabetes: Code(s): E11.9 - Type 2 diabetes mellitus without complications Status: Acute Plan Final dx: Left lower quadrant abdominal wall abscess (25 x 10 cm) Sepsis/abdominal wall cellulitis IV fluid resuscitation Monitor lactic acid levels Repeat CBC CMP Two sets of Blood cultures urine cultures- pending C-reactive protein, 25.9 WBCs 19.1-18 today PTT and PT INR normal Monitor albumin' Monitoring of mental status. Steroids suggested if septic shock not improved with fluid resuscitation and vasopressors. IV antibiotics vancomycin and cefepime will switch to oral Levaquin and doxy tomorrow with 10 days duration and anticipate discharge home. 09/18 WBC 16.7 today 09/19- draining today- will collect wound culture and see if that could be I&D surgery consulted 09/19- I/D doner per surgery- drained and packed: packed the cavity with half-inch iodoform.? This allowed the cavity to continue to be open and draining.? Sterile dressing was then placed on the wound.? The patient tolerated the procedure well DM HBA1c ( goal <7.0%) , Renal functions, Liver panel every 3 months Monitor vitamin B12 levels Optimize MARILOU-inhibitor and statin and semaglutide patient currently on [facility] Routine glucose monitoring. Watch for Hypoglycemia. BMI goal < 25 Exercise, Diet ( low salt- low carb) Weight loss adding sliding scale insulin for strict blood sugar control OBESITY Monitor physical inactivity. Stress monitoring and eating disorder. Referral to weight loss clinic. Weight bias and stigma screening. Diet and exercise counseling done History of hypertension continue lisinopril hydrochlorothiazide. and amlodipine History of hyperlipidemia continue atorvastatin history of anxiety continue citalopram (obesogenic) DS: Summary Hospital Course Hospital Course: The patient is a 48-year-old female with multiple medical issues that presented to the emergency department with a left lower quadrant abscess, cellulitis and sepsis.? The patient reports she had severe inflammation, pain, and redness in the left lower quadrant for few days prior to emergency room visit.? She finished p.o. antibiotics prescribed her PCP but reports no improvement.? The patient reports systemic symptoms of fevers, chills, weakness, anorexia.? The patient reports since admission with IV antibiotics this area has dramatically improved and actually opened and started draining purulent fluid yesterday.? She reports the pain and pressure are significantly improved this time. area was I/D per surgery, packed and dressed. OK to discharge om PO antibiotics Status at Discharge Functional status at discharge: independent ambulation Overall status at discharge: patient is back to baseline Time Spent with Patient Time attestation: Total time spent providing and/or coordinating discharge services: Time spent: Less than 30 minutes Exam Narrative: GENERAL: Well appearing, no acute distress. HEAD: Normocephalic, atraumatic. NECK: Supple. No adenopathy, no masses. RESPIRATORY: respirations nonlabored. , no rales, wheezing. CARDIOVASCULAR: Regular rate and rhythm without murmurs, . Peripheral pulses 2+ and equal bilaterally. ABDOMINAL: Soft, nontender, nondistended, no hepatosplenomegaly. Normoactive BS. erythema and abscess left lower quadrant abdominal wall MUSCULOSKELETAL: no Epigastric and no hypochondrial tenderness SKIN: Warm, dry, erythema is improving to abd (abd is marked). dressing is c/d/i NEURO: A&O X3. Moves all
[2023-09-20] MEDS: ONDANSETRON INJ 4 MG/2 ML VIAL IV PUSH (13:56)
--- NOTE | 2023-09-25 08:23 | PC.NURSE ---
Pt is on Doxycycline for her wound cx and the cx is sensitive to this. Nanda Matt NP aware of findings.
== END 2023-09-20 14:33 | disposition home or self-care (01) | DRG 872 ==
LOC: ANHED 09-18 00:41 → ANH2MED 09-18 01:08
PROVIDERS: Admitting Provider Internal Medicine; Emergency Provider Physician Assistant; PCP Family Medicine; Visit Provider Nurse Practitioner
DX: A41.9 Sepsis, unspecified organism (principal); L02.211 Cutaneous abscess of abdominal wall; L03.311 Cellulitis of abdominal wall; I10 Essential (primary) hypertension; E11.9 Type 2 diabetes mellitus without complications; K21.9 Gastro-esophageal reflux disease without esophagitis; F41.9 Anxiety disorder, unspecified
CPT/HCPCS: 10060; 36415; 80053; 80202; 81001; 81025; 82565; 82948; 83036; 83605; 83690; 85025; 85027; 85610; 85730; 86140; 87040; 87070; 87147; 87181; 87205; 93005; 96365; 96366; 96372; 96375; 99285; A9270; G0378; J0692; J1650; J1885; J2060; J2270; J2405; J3370; J7030